=== PATIENT | female | born 1995 | race African-American/Black ===

== ENCOUNTER 2020-09-05 17:52 | Emergency (ER) | payer MEDICAID ==
[~2020-09-05] VITALS: Ht 165.1 cm; Wt 69.3 kg
--- NOTE | 2020-09-05 18:15 | NUR ---
NO ANSWER X1
[2020-09-05] MEDS ORDERED: DIPH,PERTUSS(ACELL),TET VAC/PF 0.5 ML IM-VACC ONE ×2 (18:30→20:13)
--- NOTE | 2020-09-05 19:47 | NUR ---
PT. TO ROOM FROM LOBBY AT THIS TIME.
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
[2020-09-05] MEDS ORDERED: LIDOCAINE 1%, 10ML INFIL ONE (21:00)
[2020-09-05] MEDS ORDERED: LIDOCAINE-MPF 1%, 5ML ONE ×2 (21:21→22:52)
[2020-09-05] MEDS ORDERED: HYDROcodone/APAP 5/325 TABLET ONE (21:29)
[2020-09-05] MEDS ORDERED: HYDROcodone/APAP 5/325 TABLET PO ONE (21:30)
--- NOTE | 2020-09-05 21:39 | NUR ---
PT TOLERATED IRRIGATION OF FINGER WHILE COMPLAING OF LITTLE PAIN BUT FELT PULSATING.
[2020-09-05] MEDS ORDERED: PROPOFOL 10 MG/ML, 20ML IVPush ONE (22:00)
[2020-09-05] MEDS ORDERED: PROPOFOL 10 MG/ML, 20ML ONE ×2 (22:16→22:57)
--- NOTE | 2020-09-05 22:31 | NUR ---
SEDATION PAPERWORK INITIATED. REPORT TO DEBBIE CHO. CONSENT SIGNED AND PLACED AT BS.
[2020-09-05] MEDS ORDERED: NEOSPORIN OINT. PKT 1 PACKET ONE (23:14)
[2020-09-05] MEDS ORDERED: HYDROmorphone 1 MG/ML, 1ML INJ ONE (23:49)
[2020-09-06] MEDS ORDERED: HYDROmorphone 1 MG/ML, 1ML INJ IV ONE
--- NOTE | 2020-09-06 00:10 | NUR ---
RECEIVED REPORT BACK FROM DEBBIE CHO AT [facility] 2330 AFTER SEDATION WAS COMPLETED. SEE SEDATION PAPERWORK FOR FURTHER DETAILS. PT. WAS SHOUTING IN ROOM ABOUT PAIN; NEW ORDERS WERE RECEIVED AND PT. WAS MEDICATED PER JUL. PT. AND FRIEND AT BS NOW ASKING TO LEAVE. O2 REMOVED TO ENSURE PT. MAINTAIN O2 SAT ON ROOM AIR PRIOR TO D/C.
[2020-09-06 00:12] VITALS: BP 167/98
--- NOTE | 2020-09-06 00:30 | NUR ---
PT VITALS SIGNS WERE ASSESED GREATER THAN 10 MINUTES AFTER GIVEN DIALUDID AND OXYGEN SATURATION MAINTAINED IN HIGH 90'S. PT STOOD TO WHEELCHAIR. NO QUESTTIONS AT TIME OF DISCHARGE.
== END 2020-09-06 00:35 | disposition home or self-care (01) ==
LOC: ED 22:04
DX: S67.192A Crushing injury of right middle finger, initial encounter (principal); S62.602A Fracture of unspecified phalanx of right middle finger, initial encounter for closed fracture; X58.XXXA Exposure to other specified factors, initial encounter; Y93.89 Activity, other specified; Y92.009 Unspecified place in unspecified non-institutional (private) residence as the place of occurrence of the external cause; Y99.8 Other external cause status
CPT/HCPCS: 11730; 26725; 73140; 90471; 90715; 96374; 99152; 99285; J1170

== ENCOUNTER 2021-01-25 07:25 | Emergency (ER) | payer MEDICAID ==
[~2021-01-25] VITALS: Ht 167.6 cm; Wt 74.0 kg
[2021-01-25 07:28] VITALS: BP 131/68
--- NOTE | 2021-01-25 07:54 | NUR ---
TASK RN: PT TO CT.
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
== END 2021-01-25 10:04 | disposition home or self-care (01) ==
LOC: ED 09:28
DX: S00.12XA Contusion of left eyelid and periocular area, initial encounter (principal); S21.052A Open bite of left breast, initial encounter; S80.212A Abrasion, left knee, initial encounter; S80.211A Abrasion, right knee, initial encounter; S20.112A Abrasion of breast, left breast, initial encounter; H11.32 Conjunctival hemorrhage, left eye; Y04.1XXA Assault by human bite, initial encounter; Y93.89 Activity, other specified; Y92.009 Unspecified place in unspecified non-institutional (private) residence as the place of occurrence of the external cause; Y99.8 Other external cause status
CPT/HCPCS: 70450; 70486; 72125; 99285